=== PATIENT | male | born 1965 | race Caucasian/White ===

== ENCOUNTER 2018-01-26 20:13 | Emergency (ER) | payer MEDICAID, OTHER ==
[2018-01-26] MEDS: ONDANSETRON 4 MG INJ IV (21:45)
[2018-01-26] MEDS: morphine 2 MG INJ IV (21:45)
[2018-01-26] MEDS: PROPOFOL 200 MG INJ IV (23:13)
== END 2018-01-27 00:04 | disposition home or self-care (01) ==
LOC: E/R 01-27 00:04
DX: S42.351A Displaced comminuted fracture of shaft of humerus, right arm, initial encounter for closed fracture (principal); F17.210 Nicotine dependence, cigarettes, uncomplicated; W18.39XA Other fall on same level, initial encounter; Y92.9 Unspecified place or not applicable
CPT/HCPCS: 29105; 73030-RT; 73060-RT; 96374; 96375; 99285-25